=== PATIENT | male | born 1965 | race Caucasian/White ===

== ENCOUNTER 2017-05-04 10:33 | Observation (INO) | payer BC ==
--- NOTE | 2017-05-04 10:50 | EDM.PDOC ---
ED HPI GENERAL MEDICAL PROBLEM - General Chief Complaint: Cardiovascular Problem Stated Complaint: RACING HEART Time Seen by Provider: 05/04/17 10:40 Source of Information: Reports: Patient History Limitations: Reports: No Limitations - History of Present Illness INITIAL COMMENTS - FREE TEXT/NARRATIVE: HISTORY AND PHYSICAL: History of present illness: Patient is a 51-year-old male who presents to the emergency room with complaints of sensation of his heart racing since this morning. He states for the past week he has "not felt well in my chest". Reports that nothing made the pain better or worse and is adamant that "doesn't feel like pain it's just different sensation in my chest". He states that this morning he felt like his "heart was racing" and took 2 tablets of nitroglycerin approximately 45 minutes prior to arrival. He states the medication caused some dizziness and headache. He proceeded to call EMS for transport to the emergency room. Upon arrival EMS states that he had a normal EKG with a heart rate of 80s to 90s, normal sinus rhythm. Denies any chest pain, shortness of breath, abdominal pain, nausea, vomiting or diarrhea. Denies any fever, chills or diaphoresis. Does have a history of PA with stents from November 2015 which was transferred to [facility] in [place]. 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 Does see Dr. Garcia at [facility] routinely. Past medical history of elevated cholesterol, hypertension, PA with stents. 35 year history of smoking, currently not smoking. Review of systems: As per history of present illness and below otherwise all systems reviewed and negative. Past medical history: As per history of present illness and as reviewed below otherwise noncontributory. Surgical history: As per history of present illness and as reviewed below otherwise noncontributory. Social history: No reported history of drug or alcohol abuse. Family history: As per history of present illness and as reviewed below otherwise noncontributory. Physical exam: General: Well-developed and well-nourished 51-year-old male. Alert and oriented. Nontoxic appearing and in no acute distress. HEENT: Atraumatic, normocephalic, pupils reactive, negative for conjunctival pallor or scleral icterus, mucous membranes moist, throat clear, neck supple, nontender, trachea midline. Lungs: Clear to auscultation, breath sounds equal bilaterally, chest nontender. Nonreproducible. Heart: S1S2, regular rate and rhythm without murmur Abdomen: Soft, nondistended, nontender. Negative for masses or hepatosplenomegaly. Negative for costovertebral tenderness. Pelvis: Stable nontender. Genitourinary: Deferred. Rectal: Deferred. Extremities: Atraumatic, moves all extremities per self without difficulty or deficits negative for cords or calf pain. Neurovascular unremarkable. Neuro: Awake, alert, oriented. Cranial nerves II through XII unremarkable. Cerebellum unremarkable. Motor and sensory unremarkable throughout. Exam nonfocal. Upon arrival to the emergency room the patient rates his pain at a 0 out of 10. 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 Will do a cardiac workup. Patient is agreeable to plan of care. is at bedside. Pain remains to be 0/10. Offers no current complaints. Cardiac workup was negative. Patient is agreeable to staying for observation. Dr. Ho was consult at on this case. Patient will be admitted to [facility] with telemetry. Diagnostics: CBC, CMP, troponin, EKG, 1 view chest x-ray Therapeutics: Saline lock Impression: Chest pain r/o PA Plan: Observation admission to [facility] with telemetry Definitive disposition and diagnosis as appropriate pending reevaluation and review of above. Duration: Day(s):, Week(s): Location: Reports: Chest Associated Symptoms: Reports: Chest Pain. Denies: Confusion, Cough, cough w sputum, Diaphoresis, Fever/Chills, Headaches, Loss of Appetite, Malaise, Nausea/ Vomiting, Rash, Seizure, Shortness of Breath, Syncope, Weakness Treatments NEW ORDER CLERK: Reports: Aspirin, Nitroglycerin - Related Data Allergies Allergy/AdvReac Type Severity Reaction Status Date / Time No Known Allergies Allergy Verified 05/04/17 10:37 Home Meds: Home Meds Aspirin [Ana Chewable Aspirin] 81 mg PO DAILY 05/04/17 [History] Clopidogrel [Plavix] 75 mg PO DAILY 05/04/17 [History] Losartan [Cozaar] 25 mg PO DAILY 05/04/17 [History] Metoprolol Succinate 25 mg pe PO DAILY 05/04/17 [History] [place]-3/DHA/Epa/Fish Oil [Fish Oil 1,400 MG Softgel] 1 cap PO DAILY 05/04/17 [ History] Rosuvastatin [Crestor] 20 mg PO DAILY 05/04/17 [History] Turmeric Root Extract [Turmeric] 500 mg PO DAILY 05/04/17 [History] Ubidecarenone [Co Q-10] 400 mg PO DAILY 05/04/17 [History] Past Medical History - Past Health History Medical/Surgical History: Denies Medical/Surgical History Social & Family History - Family History Family Medical History: Noncontributory - Tobacco Use Smoking Status *Q: Current Every Day Smoker Years of Tobacco use: 32 Packs/Tins Daily: 2 Used Tobacco, but Quit: No Second Hand Smoke Exposure: Yes - Caffeine Use Caffeine Use: Reports: Soda Caffeine Use Comment: 2 mountain dews per day - Recreational Drug Use Recreational Drug Use: No ED ROS GENERAL - Review of Systems Review Of Systems: ROS reveals no pertinent complaints other than HPI. ED EXAM, GENERAL - Physical Exam Exam: See Below (See dictation) Course - Vital Signs Last Recorded V/S: Last Vital Signs Temp 97.4 F 05/04/17 10:37 Pulse 62 05/04/17 12:09 Resp 16 05/04/17 11:36 BP 122/73 05/04/17 12:09 Pulse Ox 96 05/04/17 12:09 - Orders/Labs/Meds Orders: Active Orders 24 hr Category Date Time Status Admission Status [Patient Status] [ADT] Stat ADT 05/04/17 12:49 Active EKG Documentation Completion [RC] STAT Care 05/04/17 10:41 Active Chest 1V Frontal [CR] Stat Exams 05/04/17 10:41 Taken Labs: Laboratory Tests 05/04/17 05/04/17 Range/Units 10:45 10:45 WBC 7.81 (4.0-11.0) K/uL RBC 5.02 (4.50-5.90) M/uL Hgb 14.8 (13.0-17.0) g/dL Hct 44.2 (38.0-50.0) % MCV 88.0 (80.0-98.0) fL MCH 29.5 (27.0-32.0) pg MCHC 33.5 (31.0-37.0) g/dL RDW Std Deviation 40.0 (28.0-62.0) fl RDW Coeff of Brielle 13 (11.0-15.0) % Plt Count 274 (150-400) K/uL MPV 9.40 (7.40-12.00) fL Neut % (Auto) 45.6 L (48.0-80.0) % Lymph % (Auto) 42.5 H (16.0-40.0) % Mitchell % (Auto) 9.5 (0.0-15.0) % Eos % (Auto) 1.9 (0.0-7.0) % Baso % (Auto) 0.5 (0.0-1.5) % Neut # (Auto) 3.6 (1.4-5.7) K/uL Lymph # (Auto) 3.3 H (0.6-2.4) K/uL Mitchell # (Auto) 0.7 (0.0-0.8) K/uL Eos # (Auto) 0.2 (0.0-0.7) K/uL Baso # (Auto) 0.0 (0.0-0.1) K/uL Nucleated RBC % 0.0 /100WBC Nucleated RBCs # 0 K/uL Sodium 138 (136-146) mmol/L Potassium 4.1 (3.5-5.1) mmol/L Chloride 106 (98-110) mmol/L Carbon Dioxide 22 (21-31) mmol/L BUN 14 (6.0-23.0) mg/dL Creatinine 1.1 (0.6-1.5) mg/dL Est Cr Clr Drug Dosing 82.03 mL/min Estimated GFR (MDRD) > 60.0 ml/min Glucose 140 H (60-110) mg/dL Calcium 9.3 (8.8-10.8) mg/dL Total Bilirubin 0.4 (0.1-1.5) mg/dL AST 19 (5-40) IU/L ALT 26 (8-54) IU/L Alkaline Phosphatase 61 (40-150) Troponin I < 0.10 (0.0-0.29) NG/ML Total Protein 8.0 (6.0-8.0) g/dL Albumin 4.2 (3.5-5.0) g/dL Globulin 3.8 H (2.0-3.5) g/dL Albumin/Globulin Ratio 1.1 L (1.3-2.8) Departure - Departure Time of Disposition: 12:54 Disposition: Home, Self-Care 01 Clinical Impression: Chest pain, rule out acute myocardial infarction Referrals: Allan Garcia MD [Primary Care Provider] - Forms: ED Department Discharge - My Orders Last 24 Hours: My Active Orders 05/04/17 10:41 EKG Documentation Completion [RC] STAT Chest 1V Frontal [CR] Stat 05/04/17 12:49 Admission Status [Patient Status] [ADT] Stat - Assessment/Plan Last 24 Hours: My Active Orders 05/04/17 10:41 EKG Documentation Completion [RC] STAT Chest 1V Frontal [CR] Stat 05/04/17 12:49 Admission Status [Patient Status] [ADT] Stat
[2017-05-04 11:22] LABS: CHLORIDE,CL 106 mmol/L (98-110); SODIUM,NA 138 mmol/L (136-146)
--- NOTE | 2017-05-04 14:04 | PCM.HP ---
H&P History of Present Illness - History of Present Illness Initial Comments - Free Text/Narative: 51 yo male with pmh of CAD, [place] s/p PCI in Nov 2015 who presents with several hour history of dizziness and palpitations. He deneis any chest pain or shortness of breath. Palpitations resolved prior to presentation to the ED. Inital EKG and cardiac enzymes were negative for signs of ischemia - Related Data Allergies/Adverse Reactions: Allergies Allergy/AdvReac Type Severity Reaction Status Date / Time No Known Allergies Allergy Verified 05/04/17 10:37 Home Medications: Home Meds Acetaminophen/Diphenhydramine [Tylenol Pm Ex-Strength Caplet] 2 tab PO BEDTIME 05/04/17 [History] Aspirin [Ana Chewable Aspirin] 81 mg PO DAILY 05/04/17 [History] Clopidogrel [Plavix] 75 mg PO DAILY 05/04/17 [History] Losartan [Cozaar] 25 mg PO DAILY 05/04/17 [History] Metoprolol Succinate 25 mg pe PO DAILY 05/04/17 [History] [place]-3/DHA/Epa/Fish Oil [Fish Oil 1,400 MG Softgel] 1 cap PO BID 05/04/17 [ History] Rosuvastatin [Crestor] 20 mg PO DAILY 05/04/17 [History] Turmeric Root Extract [Turmeric] 500 mg PO BID 05/04/17 [History] Ubidecarenone [Co Q-10] 400 mg PO DAILY 05/04/17 [History] metFORMIN [Glucophage] 500 mg PO WITHDINNER #30 tab 05/05/17 [Rx] Past Medical History - Past Health History Medical/Surgical History: Denies Medical/Surgical History HEENT History: Reports: None Cardiovascular History: Reports: NM Respiratory History: Reports: None Gastrointestinal History: Reports: None Genitourinary History: Reports: None Musculoskeletal History: Reports: None Neurological History: Reports: None Psychiatric History: Reports: None Endocrine/Metabolic History: Reports: None Hematologic History: Reports: None Immunologic History: Reports: None Oncologic (Cancer) History: Reports: None Dermatologic History: Reports: None - Past Surgical History Head Surgeries/Procedures: Reports: None HEENT Surgical History: Reports: None Cardiovascular Surgical History: Reports: Coronary Artery Stent Other Cardiovascular Surgeries/Procedures: LAD RCA 2016 Respiratory Surgical History: Reports: None Male Surgical History: Reports: None Endocrine Surgical History: Reports: None Neurological Surgical History: Reports: None Musculoskeletal Surgical History: Reports: None Oncologic Surgical History: Reports: None Dermatological Surgical History: Reports: None Social & Family History - Family History Family Medical History: Noncontributory - Tobacco Use Smoking Status *Q: Current Every Day Smoker Years of Tobacco use: 32 Packs/Tins Daily: 2 Used Tobacco, but Quit: No Month Tobacco Last Used: 2016 Second Hand Smoke Exposure: Yes - Caffeine Use Caffeine Use: Reports: Soda Caffeine Use Comment: 2 mountain dews per day - Recreational Drug Use Recreational Drug Use: No H&P Review of Systems - Review of Systems: Review Of Systems: ROS reveals no pertinent complaints other than HPI. Exam - Exam Exam: See Below - Vital Signs Vital Signs: Last Vital Signs Temp 36.3 C 05/04/17 10:37 Pulse 63 05/04/17 12:54 Resp 14 05/04/17 12:54 BP 132/69 05/04/17 12:54 Pulse Ox 97 05/04/17 12:54 Weight: 108.862 kg - Exam General: Alert, Oriented HEENT: Mucosa Moist & [place] Neck: Supple, Trachea Midline. No: JVD Lungs: Clear to Auscultation, Normal Respiratory Effort Cardiovascular: Regular Rate, Regular Rhythm GI/Abdominal Exam: Soft, Non-Tender, No Distention Extremities: No Pedal Edema Skin: Warm, Dry, Intact Neurological: No: Focal Deficit - Patient Data Result Diagrams: 05/04/17 10:45 05/04/17 10:45 *Q Meaningful Use (ADM) - VTE *Q VTE Criteria *Q: - Stroke *Q Stroke Criteria *Q: - AMI *Q AMI Criteria *Q: Problem List Initiated/Reviewed/Updated: Yes Assessment/Plan Comment:: 51 yo male who presents with palpitations. We will monitor overnight on telemetry. We will rule out acute coronary syndrome with serial cardiac enzymes.
[2017-05-04] MEDS: Insulin Aspart 100 Units/ML 3 ML Pen SUBCUT SCH (17:18)
[2017-05-05] MEDS: Insulin Aspart 100 Units/ML 3 ML Pen SUBCUT SCH ×2 (06:31→12:54)
[2017-05-05 08:37] VITALS: BP 141/69
[2017-05-05] MEDS ORDERED: Clopidogrel 75 MG Tab PO SCH (09:00)
[2017-05-05] MEDS ORDERED: Losartan 50 MG Tab PO SCH (09:00)
[2017-05-05] MEDS ORDERED: Aspirin 81 MG Tab.Chew PO SCH (09:00)
[2017-05-05] MEDS ORDERED: Rosuvastatin 10 MG Tab PO SCH (09:00)
[2017-05-05] MEDS ORDERED: Metoprolol Succinate 25 MG Tab.ER PO SCH (09:00)
--- NOTE | 2017-05-05 09:15 | PCM.DCSUM1 ---
Discharge Summary - Hospital Course Brief History: 51 yo male with pmh of CAD, [place] s/p PCI in Nov 2015 who presents with several hour history of dizziness and palpitations. He deneis any chest pain or shortness of breath. Palpitations resolved prior to presentation to the ED. Inital EKG and cardiac enzymes were negative for signs of ischemia - Discharge Data Discharge Date: 05/05/17 Discharge Disposition: Home, Self-Care 01 Condition: Stable - Discharge Diagnosis/Problem(s) (1) Palpitations SNOMED Code(s): 85219600 ICD Code: R00.2 - PALPITATIONS Status: Acute (2) Chest pain, rule out acute myocardial infarction SNOMED Code(s): 97218705 ICD Code: R07.9 - CHEST PAIN, UNSPECIFIED Status: Acute (3) New onset type 2 diabetes mellitus SNOMED Code(s): 25969738 ICD Code: E11.9 - TYPE 2 DIABETES MELLITUS WITHOUT COMPLICATIONS Status: Acute (4) HTN (hypertension) SNOMED Code(s): 77527255 ICD Code: I10 - ESSENTIAL (PRIMARY) HYPERTENSION Status: Chronic Qualifiers: Hypertension type: essential hypertension Qualified Code(s): I10 - Essential (primary) hypertension (5) Dyslipidemia SNOMED Code(s): 525926602 ICD Code: E78.5 - HYPERLIPIDEMIA, UNSPECIFIED Status: Chronic (6) Obesity SNOMED Code(s): 521681339 ICD Code: E66.9 - OBESITY, UNSPECIFIED Status: Chronic - Patient Summary/Data Consults: Consultations 05/05/17 08:25 Consult to DM [Consult to Diabetic Nurse Specialist] [CONS] Routine - Patient Instructions Diet: Heart Healthy Diet, Diabetic Diet Activity: No Strenuous Activities, Rest and Relax Today Showering/Bathing: May Shower Notify Provider of: Fever, Increased Pain, Swelling and Redness, Drainage, Nausea and/or Vomiting - Discharge Plan Prescriptions/Med Rec: metFORMIN [Glucophage] 500 mg PO WITHDINNER #30 tab Home Medications: Home Meds Acetaminophen/Diphenhydramine [Tylenol Pm Ex-Strength Caplet] 2 tab PO BEDTIME 05/04/17 [History] Aspirin [Ana Chewable Aspirin] 81 mg PO DAILY 05/04/17 [History] Clopidogrel [Plavix] 75 mg PO DAILY 05/04/17 [History] Losartan [Cozaar] 25 mg PO DAILY 05/04/17 [History] Metoprolol Succinate 25 mg pe PO DAILY 05/04/17 [History] [place]-3/DHA/Epa/Fish Oil [Fish Oil 1,400 MG Softgel] 1 cap PO BID 05/04/17 [ History] Rosuvastatin [Crestor] 20 mg PO DAILY 05/04/17 [History] Turmeric Root Extract [Turmeric] 500 mg PO BID 05/04/17 [History] Ubidecarenone [Co Q-10] 400 mg PO DAILY 05/04/17 [History] metFORMIN [Glucophage] 500 mg PO WITHDINNER #30 tab 05/05/17 [Rx] Patient Handouts: Chest Wall Pain, [id number], Nonspecific Chest Pain, Easy- to-Read Referrals: Laura Licea MD [Physician] - 05/13/17 11:00 am (stress test) Allan Garcia MD [Primary Care Provider] - 05/13/17 3:00 pm - Discharge Summary/Plan Comment DC Time >30 min.: No Discharge Summary/Plan Comment: Discharge Diagnoses: Palpitations-resolved New onset DM type 2- A1c 6.5 HTN Dyslipidemia Hx [place] with PCI stenting Nov 2015. Juan was admitted and monitored overnight due to palpitations and chest pain. Troponins were negative and telemetry showed no signs of ischemia. Patient had no further episodes of palpitations or chest pain. admitting BS was noted to be elevated, A1c obtained and noted to be 6.5. Metformin 500 mg daily started for now and he is to follow up with PCP for follow up. He was visited by technology applications engineer and discussed diet changes. He was encouraged to start activity slowly to help lose weight. He will be scheduled for outpatient stress test with Dr. Licea, patient requested it to be done here because it would be easiest and travel to see Dr. Olivia if needed and when scheduled for annual visit in August. he is to return to ED or clinic if concerns should arise. Continue Home medications with new medication of metformin. He is to follow up with PCP in 1 week. - General Info Date of Service: 05/05/17 Admission Dx/Problem (Free Text: palpitations Subjective Update: Doing well this morning, really eager to go home. Denies further palpitations and no chest pain/pressure. Denies SOB. Discussed diet and lifestyle changes due to A1c returning elevated and new diagnosis of DM type 2. Functional Status: Reports: Pain Controlled - Review of Systems General: Reports: No Symptoms. Denies: Fever, Fatigue HEENT: Reports: No Symptoms. Denies: Sinus Congestion, Sore Throat, Rhinitis Pulmonary: Reports: No Symptoms. Denies: Shortness of Breath Cardiovascular: Reports: No Symptoms. Denies: Chest Pain, Palpitations, Edema, Lightheadedness Gastrointestinal: Reports: No Symptoms. Denies: Abdominal Pain, Nausea, Vomiting Musculoskeletal: Reports: No Symptoms. Denies: Neck Pain Neurological: Reports: No Symptoms. Denies: Confusion Psychiatric: Reports: No Symptoms. Denies: Confusion - Patient Data Vitals - Most Recent: Last Vital Signs Temp 97.8 F 05/05/17 08:00 Pulse 63 05/05/17 08:00 Resp 18 05/05/17 08:00 BP 141/69 H 05/05/17 08:35 Pulse Ox 94 L 05/05/17 08:00 Weight - Most Recent: 108.862 kg I&O - Last 24 hours: Intake & Output 05/04/17 05/05/17 05/05/17 22:59 06:59 14:59 Intake Total 500 2000 Output Total 600 1300 Balance -100 700 Lab Results - Last 24 hrs: Laboratory Results - last 24 hr 05/04/17 05/04/17 05/04/17 Range/Units 16:52 17:56 23:54 POC Glucose 86 (60-110) mg/dL Troponin I < 0.10 < 0.10 (0.0-0.29) NG/ML 05/05/17 Range/Units 06:06 POC Glucose 107 (60-110) mg/dL Troponin I (0.0-0.29) NG/ML Med Orders - Current: Current Medications Aspirin (Aspirin) 81 mg PO DAILY [facility] Last Admin: 05/05/17 08:34 Dose: Not Given Clopidogrel Bisulfate (Plavix) 75 mg PO DAILY [facility] Last Admin: 05/05/17 08:36 Dose: Not Given Insulin Aspart (Novolog) 0 unit SUBCUT TIDAC [facility] PRN Reason: Protocol Last Admin: 05/05/17 06:31 Dose: Not Given Losartan Potassium (Cozaar) 25 mg PO DAILY [facility] Last Admin: 05/05/17 08:35 Dose: Not Given Metoprolol Succinate (Toprol Xl) 25 mg PO DAILY [facility] Rosuvastatin Calcium (Crestor) 20 mg PO DAILY JOCELYN - Exam General: Reports: Alert, Oriented, Cooperative, No Acute Distress Neck: Reports: Supple Lungs: Reports: Clear to Auscultation, Normal Respiratory Effort Cardiovascular: Reports: Regular Rate, Regular Rhythm GI/Abdominal Exam: Normal Bowel Sounds, Soft, Non-Tender, No Organomegaly, No Distention, No Abnormal Bruit, No Mass, Pelvis Stable Extremities: Normal Inspection, Normal Range of Motion, Non-Tender, No Pedal Edema, Normal Capillary Refill Neurological: Reports: No New Focal Deficit *Q Meaningful Use (DIS) - VTE *Q VTE Criteria *Q: - Stroke *Q Stroke Criteria *Q: - AMI *Q AMI Criteria *Q:
--- NOTE | 2017-05-05 16:02 | CR ---
EXAM DATE: 05/04/17 PATIENT'S AGE: 51 Patient: STEVE PLASENCIA Facility: [place], [place] Site . Site : [id number] Study: XRay Chest [id number]/[id number] 11:19:31 AM Ordering Physician: Doctor Tran Final Report: INDICATION: Chest pain. Racing heart. TECHNIQUE: AP portable chest x-ray. COMPARISON: 12/13/2015. FINDINGS: The heart is upper limits of normal and stable. Fat pad at the cardiac apex accentuates heart size. Lungs are clear without infiltrate or consolidation. Chest otherwise negative without acute disease. Dictated by Laurent Kaur MD @ May 04 2017 11:19AM (Electronic Signature) Report Signed by Proxy. SHARRI
== END 2017-05-05 12:40 | disposition home or self-care (01) ==
LOC: MW.ED 10:33 → MW.MS 13:00
PROVIDERS: ADMIT Internal Medicine; ATTEND Internal Medicine
DX: R00.2 Palpitations (principal); R42 Dizziness and giddiness; E11.9 Type 2 diabetes mellitus without complications; I25.10 Atherosclerotic heart disease of native coronary artery without angina pectoris; I25.2 Old myocardial infarction; I10 Essential (primary) hypertension; E78.5 Hyperlipidemia, unspecified; F17.210 Nicotine dependence, cigarettes, uncomplicated; R07.9 Chest pain, unspecified; E66.9 Obesity, unspecified; Z68.34 Body mass index [BMI] 34.0-34.9, adult; Z79.82 Long term (current) use of aspirin; Z79.02 Long term (current) use of antithrombotics/antiplatelets; Z79.899 Other long term (current) drug therapy; Z95.5 Presence of coronary angioplasty implant and graft
CPT/HCPCS: 36415; 71045; 80053; 82962; 83036; 84484; 85025; 87804; 99285; G0378; 99284